=== PATIENT | male | born 1955 | race Two or more races ===

== ENCOUNTER 2020-03-22 21:36 | Emergency (ER) | payer SELFPAY ==
[~2020-03-22] VITALS: Ht 167.6 cm; Wt 79.7 kg
[2020-03-22 21:40] VITALS: BP 189/107
--- NOTE | 2020-03-22 23:16 | NUR ---
PT NOT IN LOBBY WHEN CALLED.
--- NOTE | 2020-03-22 23:25 | NUR ---
SECOND CALL--PT NOT IN LOBBY. ASSUMED PT LWBS.
[2020-03-22 23:30] LABS: MICROSCOPIC NOT IND
== END 2020-03-22 23:27 | disposition left against medical advice (07) ==
LOC: ED 23:00
DX: R10.32 Left lower quadrant pain (principal); Z53.21 Procedure and treatment not carried out due to patient leaving prior to being seen by health care provider
CPT/HCPCS: 81003